=== PATIENT | male | born 1940 | race Asian ===

== ENCOUNTER → 2016-06-13 | Outpatient (CLI) | payer MEDICARE, BC ==
[~2016-06-13] VITALS: Ht 162.6 cm; Wt 63.0 kg
[2016-06-13 12:38] VITALS: BP 151/77
== END | disposition home or self-care (01) ==
LOC: SRCNTR 12:27
PROVIDERS: ATTEND Internal Medicine
DX: E11.9 Type 2 diabetes mellitus without complications (principal); I10 Essential (primary) hypertension; B38.2 Pulmonary coccidioidomycosis, unspecified
CPT/HCPCS: G0463

== ENCOUNTER → 2016-09-30 | Outpatient (CLI) | payer MEDICARE, BC ==
[~2016-09-30] VITALS: Ht 162.6 cm; Wt 61.5 kg
[2016-09-30 14:43] VITALS: BP 141/78
== END | disposition home or self-care (01) ==
LOC: SRCNTR 14:24
PROVIDERS: ATTEND Internal Medicine
DX: B38.2 Pulmonary coccidioidomycosis, unspecified (principal); E11.9 Type 2 diabetes mellitus without complications; I10 Essential (primary) hypertension
CPT/HCPCS: G0463

== ENCOUNTER → 2017-06-04 | Outpatient (CLI) | payer MEDICARE, BC ==
[~2017-06-04] VITALS: Ht 162.6 cm; Wt 61.0 kg
[2017-06-04 13:30] VITALS: BP 140/81
== END | disposition home or self-care (01) ==
LOC: SRCNTR 13:28
PROVIDERS: ATTEND Internal Medicine
DX: B38.1 Chronic pulmonary coccidioidomycosis (principal); I10 Essential (primary) hypertension; E11.9 Type 2 diabetes mellitus without complications
CPT/HCPCS: G0463